=== PATIENT | female | born 1990 | race Hispanic/Latino ===

== ENCOUNTER 2016-08-02 08:25 | Outpatient (CLI) | payer MEDICAID | END 2016-08-02 08:26 | disposition home or self-care (01) | LOC: MADLAB 08:25 → MADLABBHPM 08:26 | PROVIDERS: ATTEND Family Medicine | DX: Z34.82 Encounter for supervision of other normal pregnancy, second trimester (principal) | CPT/HCPCS: 36415; 82951; 82952 ==

== ENCOUNTER 2021-02-10 07:45 | Outpatient (CLI) | payer OTHER | END 2021-02-10 07:46 | disposition home or self-care (01) | LOC: MADLAB 07:45 | PROVIDERS: ATTEND Family Medicine | DX: Z34.83 Encounter for supervision of other normal pregnancy, third trimester (principal) | CPT/HCPCS: 36415; 82951; 82952 ==